=== PATIENT | male | born 1945 | race Native Hawaiian/Other Pacific Islander ===

== ENCOUNTER 2017-01-27 11:50 | Outpatient (CLI) | payer OTHER ==
[~2017-01-27 11:50] MED LIST: CEPH500C20 PO; RANI150T78 PO
[2017-01-27 12:43] LABS: PLATELET COUNT 226 K/uL (142-355)
[2017-01-27 13:06] LABS: POTASSIUM 4.7 mmol/L (3.6-5.2); SODIUM 139 mmol/L (136-145)
== END 2017-01-27 19:57 | disposition home or self-care (01) ==
LOC: LAB 11:50 → US 11:50
PROVIDERS: Internal Medicine
DX: M79.89 Other specified soft tissue disorders (principal)
CPT/HCPCS: 36415; 80053; 85027; 85379; 85651

== ENCOUNTER 2017-04-11 09:36 | Outpatient (CLI) | payer OTHER | END 2017-04-11 19:20 | disposition home or self-care (01) | LOC: LABW 09:36 | PROVIDERS: Nurse Practitioner Adult Health | DX: I25.10 Atherosclerotic heart disease of native coronary artery without angina pectoris (principal); E78.2 Mixed hyperlipidemia; Z79.899 Other long term (current) drug therapy; Z51.81 Encounter for therapeutic drug level monitoring | CPT/HCPCS: 36415; 80061; 80076 ==

== ENCOUNTER 2017-10-03 08:24 | Outpatient (CLI) | payer OTHER | END 2017-10-03 09:25 | disposition home or self-care (01) | LOC: LABW 08:24 | PROVIDERS: Nurse Practitioner Adult Health | DX: E78.2 Mixed hyperlipidemia (principal); Z79.899 Other long term (current) drug therapy; Z51.81 Encounter for therapeutic drug level monitoring | CPT/HCPCS: 36415; 80061; 80076 ==

== ENCOUNTER 2018-03-21 08:39 | Outpatient (CLI) | payer OTHER | END 2018-03-21 22:28 | disposition home or self-care (01) | LOC: NM 08:39 | DX: I25.10 Atherosclerotic heart disease of native coronary artery without angina pectoris (principal) | CPT/HCPCS: A9500 ==

== ENCOUNTER 2018-04-06 08:08 | Outpatient (CLI) | payer OTHER | END 2018-04-06 22:03 | disposition home or self-care (01) | LOC: LABW 08:08 | PROVIDERS: Nurse Practitioner Adult Health | DX: E78.2 Mixed hyperlipidemia (principal); Z79.899 Other long term (current) drug therapy; Z51.81 Encounter for therapeutic drug level monitoring | CPT/HCPCS: 36415; 80061; 80076 ==

== ENCOUNTER 2018-07-19 08:31 | Outpatient (CLI) | payer OTHER ==
[2018-07-19 08:45] LABS: PLATELET COUNT 202 K/uL (142-355)
[2018-07-19 09:39] LABS: POTASSIUM 4.2 mmol/L (3.6-5.2)
== END 2018-07-19 19:16 | disposition home or self-care (01) ==
LOC: LABW 08:31
PROVIDERS: Internal Medicine
DX: N40.0 Benign prostatic hyperplasia without lower urinary tract symptoms (principal); I10 Essential (primary) hypertension
CPT/HCPCS: 36415; 80053; 80061; 84153; 84443; 85027

== ENCOUNTER 2018-12-12 08:30 | Outpatient (CLI) | payer OTHER | END 2018-12-12 23:38 | disposition home or self-care (01) | LOC: LABW 08:30 | PROVIDERS: Nurse Practitioner Adult Health | DX: E78.2 Mixed hyperlipidemia (principal); Z79.899 Other long term (current) drug therapy | CPT/HCPCS: 36415; 80061; 80076 ==

== ENCOUNTER 2019-06-20 08:50 | Outpatient (CLI) | payer OTHER | END 2019-06-20 23:35 | disposition home or self-care (01) | LOC: LABW 08:50 | PROVIDERS: Nurse Practitioner Adult Health | DX: E78.2 Mixed hyperlipidemia (principal); Z79.899 Other long term (current) drug therapy | CPT/HCPCS: 36415; 80061; 80076 ==

== ENCOUNTER 2019-12-04 08:45 | Outpatient (CLI) | payer OTHER | END 2019-12-04 17:00 | disposition home or self-care (01) | LOC: LABW 08:45 | PROVIDERS: Nurse Practitioner Adult Health | DX: E78.2 Mixed hyperlipidemia (principal); Z79.899 Other long term (current) drug therapy | CPT/HCPCS: 36415; 80061; 80076 ==

== ENCOUNTER 2020-05-29 08:18 | Outpatient (CLI) | payer OTHER | END 2020-05-29 19:56 | disposition home or self-care (01) | LOC: LABW 08:18 | PROVIDERS: Nurse Practitioner Adult Health | DX: E78.2 Mixed hyperlipidemia (principal); Z79.899 Other long term (current) drug therapy | CPT/HCPCS: 36415; 80061; 80076 ==

== ENCOUNTER 2020-09-05 08:31 | Outpatient (CLI) | payer OTHER | END 2020-09-05 18:58 | disposition home or self-care (01) | LOC: RESP 08:31 | DX: I25.10 Atherosclerotic heart disease of native coronary artery without angina pectoris (principal); I42.8 Other cardiomyopathies ==

== ENCOUNTER 2020-09-09 08:37 | Outpatient (CLI) | payer OTHER | END 2020-09-09 19:08 | disposition home or self-care (01) | LOC: NM 08:37 | DX: I25.10 Atherosclerotic heart disease of native coronary artery without angina pectoris (principal); I42.8 Other cardiomyopathies | CPT/HCPCS: A9500 ==

== ENCOUNTER 2020-12-12 08:50 | Outpatient (CLI) | payer OTHER | END 2020-12-12 23:59 | disposition home or self-care (01) | LOC: LABW 08:50 | PROVIDERS: ATTEND Nurse Practitioner Adult Health | DX: E78.2 Mixed hyperlipidemia (principal); Z79.899 Other long term (current) drug therapy | CPT/HCPCS: 36415; 80061; 80076 ==

== ENCOUNTER 2021-06-08 08:35 | Outpatient (CLI) | payer OTHER | END 2021-06-08 21:20 | disposition home or self-care (01) | LOC: LABW 08:35 | PROVIDERS: ATTEND Nurse Practitioner Adult Health | DX: I25.10 Atherosclerotic heart disease of native coronary artery without angina pectoris (principal); E78.2 Mixed hyperlipidemia; Z79.899 Other long term (current) drug therapy | CPT/HCPCS: 36415; 80061; 80076 ==

== ENCOUNTER 2021-10-28 08:39 | Outpatient (CLI) | payer OTHER | END 2021-10-28 20:13 | disposition home or self-care (01) | LOC: LABW 08:39 | PROVIDERS: ATTEND Nurse Practitioner | DX: E78.2 Mixed hyperlipidemia (principal) | CPT/HCPCS: 36415; 80061; 80076 ==

== ENCOUNTER 2022-05-10 08:08 | Outpatient (CLI) | payer OTHER | END 2022-05-10 18:56 | disposition home or self-care (01) | LOC: LABW 08:08 | PROVIDERS: ATTEND Nurse Practitioner Adult Health | DX: E78.5 Hyperlipidemia, unspecified (principal) | CPT/HCPCS: 36415; 80061; 80076 ==

== ENCOUNTER 2022-09-23 13:59 | Outpatient (CLI) | payer OTHER ==
[2022-09-23 14:34] LABS: PLATELET COUNT 208 K/uL (142-355)
== END 2022-09-23 23:12 | disposition home or self-care (01) ==
LOC: LAB 13:59
PROVIDERS: ATTEND Internal Medicine
DX: R35.0 Frequency of micturition (principal); E78.2 Mixed hyperlipidemia
CPT/HCPCS: 80053; 81002; 84153; 84439; 84443; 85027

== ENCOUNTER 2022-10-28 08:39 | Outpatient (CLI) | payer OTHER | END 2022-10-28 19:00 | disposition home or self-care (01) | LOC: LABW 08:39 | PROVIDERS: ATTEND Nurse Practitioner Adult Health | DX: E78.2 Mixed hyperlipidemia (principal); Z79.899 Other long term (current) drug therapy | CPT/HCPCS: 36415; 80061; 80076 ==

== ENCOUNTER 2022-12-14 09:22 | Outpatient (CLI) | payer OTHER ==
[~2022-12-14] VITALS: Ht 170.2 cm; Wt 111.6 kg
== END 2022-12-14 19:15 | disposition home or self-care (01) ==
LOC: NM 09:22
PROVIDERS: ATTEND Nurse Practitioner
DX: Z01.810 Encounter for preprocedural cardiovascular examination (principal); I10 Essential (primary) hypertension; I25.10 Atherosclerotic heart disease of native coronary artery without angina pectoris; I25.5 Ischemic cardiomyopathy
CPT/HCPCS: A9500; J2785

== ENCOUNTER 2023-06-06 09:48 | Outpatient (CLI) | payer OTHER | END 2023-06-06 20:47 | disposition home or self-care (01) | LOC: LABW 09:48 | PROVIDERS: ATTEND Nurse Practitioner | DX: E78.2 Mixed hyperlipidemia (principal); Z79.899 Other long term (current) drug therapy | CPT/HCPCS: 36415; 80061; 80076 ==